=== PATIENT | female | born 1940 | race Two or more races ===

== ENCOUNTER 2021-10-22 08:00 | Inpatient (IN) | payer OTHER ==
[~2021-10-22] VITALS: Ht 160 cm; Wt 65.8 kg
[2021-10-22] MEDS ORDERED: ZIAC 2.5-6.251 EACH PO (10:47)
[2021-10-22] MEDS ORDERED: ATIVAN0.5 M1 PO (10:47)
[2021-10-22] MEDS ORDERED: CANDESARTAN CIL32 MG PO (10:47)
[2021-10-22] MEDS ORDERED: RESTORIL15 MG PO (10:48)
[2021-10-27] MEDS ORDERED: BUPROPION XL150 MG (07:49)
[2021-10-27] MEDS ORDERED: PANTOPRAZOLE SO40 MG (07:49)
[2021-10-27] MEDS ORDERED: MAXIMUM D3325 MCG (07:49)
[2021-10-31] MEDS ORDERED: INTEGRA PLUS C1 EACH PO (08:37)
[2021-10-31] MEDS ORDERED: BACTRIM DS TAB1 EACH PO (08:37)
[2021-10-31] MEDS ORDERED: XARELTO15 MG PO (08:37)
[2021-10-31] MEDS ORDERED: OXYC1TAB9 PO (08:37)
== END 2021-10-31 22:36 | DRG 470 ==
LOC: O/R 10-27 05:20 → SURH 10-27 05:20
PROVIDERS: ADMIT Orthopaedic Surgery Sports Medicine; ATTEND Orthopaedic Surgery Sports Medicine
PROC: 3E0F7SF Introduction of Other Gas into Respiratory Tract, Via Natural or Artificial Opening (ICD-10-PCS; 2021-10-27)
PROC: 0SRC0J9 Replacement of Right Knee Joint with Synthetic Substitute, Cemented, Open Approach (ICD-10-PCS; principal; 2021-10-27 11:15)
PROC: BW24YZZ Computerized Tomography (CT Scan) of Chest and Abdomen using Other Contrast (ICD-10-PCS; 2021-10-29)
PROC: 3E0F7GC Introduction of Other Therapeutic Substance into Respiratory Tract, Via Natural or Artificial Opening (ICD-10-PCS; 2021-10-29)
PROC: B54BZZZ Ultrasonography of Right Lower Extremity Veins (ICD-10-PCS; 2021-10-31)
DX: M17.11 Unilateral primary osteoarthritis, right knee (principal); I26.99 Other pulmonary embolism without acute cor pulmonale; R09.02 Hypoxemia; G89.18 Other acute postprocedural pain; M25.561 Pain in right knee; E78.49 Other hyperlipidemia; I10 Essential (primary) hypertension
CPT/HCPCS: 71275

== ENCOUNTER 2025-04-12 15:42 | Emergency (ER) | payer OTHER ==
[~2025-04-12] VITALS: Ht 160 cm; Wt 68.0 kg
[~2025-04-12 15:42] MED LIST: ATACAND16 MG; ATIVAN0.5 M1 PO; BACTRIM DS TAB1 EACH PO; BUPROPION XL150 MG; CANDESARTAN CIL32 MG PO; COZAAR25 MG; INTEGRA PLUS C1 EACH PO; INTESTINEX680 M1; MAXIMUM D3325 MCG; OXYC1TAB9 PO; PANTOPRAZOLE SO40 MG; RESTORIL15 MG PO; XARELTO15 MG PO; ZIAC 2.5-6.251 EACH PO
[2025-04-12] MEDS ORDERED: KETOROLAC TROMETHAMINE 60 MG VIAL IM ONE ×2 (16:15→17:25)
[2025-04-12] MEDS ORDERED: DEXAMETHASONE SODIUM PHOSPHATE 4 MG/ML VIAL IM ONE (16:15)
[2025-04-12] MEDS ORDERED: DEXAMETHASONE SODIUM PHOSPHATE 4 MG/ML VIAL ONE (17:25)
[2025-04-12] MEDS ORDERED: ACETAMINOPHEN500 M2 PO (19:18)
== END 2025-04-12 20:07 | disposition home or self-care (01) ==
LOC: ER 15:43
DX: G89.11 Acute pain due to trauma (principal); M25.551 Pain in right hip